=== PATIENT | female | born 2000 | race Caucasian/White ===

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

== ENCOUNTER 2020-07-19 08:54 | Day surgery (SDC) | payer BC ==
[2020-07-19] VITALS (9 sets, daily range): BP systolic 112–138; BP diastolic 67–75
[~2020-07-19] VITALS: Ht 165 cm; Wt 102.9 kg
[~2020-07-19 08:54] MED LIST: PANT40TA2 PO; SUCR1TAB36 PO
[2020-07-19 09:26] LABS: BILIRUBIN,URINE NEGATIVE (NEGATIVE); CLARITY,URINE CLEAR; COLOR,URINE YELLOW; GLUCOSE, URINE (UA) NEGATIVE (NEGATIVE); KETONES,URINE NEGATIVE (NEGATIVE); LEUKOCYTE ESTERASE ,URINE NEGATIVE (NEGATIVE); NITRITE,URINE NEGATIVE (NEGATIVE); PROTEIN,URINE NEGATIVE (NEGATIVE)
[2020-07-19] MEDS ORDERED: NS IV 1000 ML 1,000 ML IV SCH (09:26)
[2020-07-19 09:38] LABS: BACTERIA,URINE FEW /HPF
[2020-07-19 09:39] LABS: SQUAMOUS EPITHELIAL CELL,UR 25-50 /HPF
[2020-07-19 10:07] LABS: BASOPHILS % (AUTO) 0 % (0-10); EOSINOPHILS # (AUTO) 0.3 10^3/uL (0.0-0.3); EOSINOPHILS % (AUTO) 3 % (0-10); HEMATOCRIT 42 % (35-52); HEMOGLOBIN 14.4 G/DL (11.5-16.0); LYMPHOCYTES # (AUTO) 1.9 X 10^3 (1.0-4.0); LYMPHOCYTES % (AUTO) 19 % (12-44); MEAN CORPUSCULAR HEMOGLOBIN 29 PG (25-34); MEAN CORPUSCULAR HGB CONC 34 G/DL (32-36); MEAN CORPUSCULAR VOLUME 86 FL (80-99); MEAN PLATELET VOLUME 9.1 FL (7.4-10.4); MONOCYTES # (AUTO) 0.7 X 10^3 (0.0-1.0); MONOCYTES % (AUTO) 7 % (0-12); NEUTROPHILS # (AUTO) 7.4 X 10^3 (1.8-7.8); NEUTROPHILS % (AUTO) 71 % (42-75); PLATELET COUNT 405 10^3/uL (130-400); WHITE BLOOD COUNT 10.3 10^3/uL (4.3-11.0)
[2020-07-19 10:22] LABS: ALBUMIN 4.3 GM/DL (3.2-4.5)
[2020-07-19 10:23] LABS: CHLORIDE 104 MMOL/L (98-107); POTASSIUM 4.1 MMOL/L (3.6-5.0); SODIUM 137 MMOL/L (135-145)
[2020-07-19 10:24] LABS: CALCIUM 9.2 MG/DL (8.5-10.1)
[2020-07-19 10:25] LABS: GLUCOSE 91 MG/DL (70-105); TOTAL PROTEIN 7.5 GM/DL (6.4-8.2)
[2020-07-19 10:26] LABS: CARBON DIOXIDE 24 MMOL/L (21-32)
[2020-07-19 10:27] LABS: BILIRUBIN,TOTAL 0.5 MG/DL (0.1-1.0)
[2020-07-19 10:28] LABS: ALKALINE PHOSPHATASE 118 U/L (40-136)
[2020-07-19 10:29] LABS: CREATININE SERUM 0.82 MG/DL (0.60-1.30); GFR ESTIMATED > 60
[2020-07-19 10:30] LABS: BUN/CREATININE RATIO 9
[2020-07-19 10:32] LABS: ALANINE AMINOTRANSFERASE 19 U/L (0-55)
[2020-07-19] MEDS ORDERED: fentaNYL INJECTION 100 MCG/2 ML AMP ONE ×3 (11:41→14:38)
[2020-07-19] MEDS ORDERED: IOHEXOL 350 MG/ML 100 ML (OMNIPAQUE 350) VIAL IV ONE (12:00)
[2020-07-19] MEDS ORDERED: HOLD METFORMIN - RECEIVED CONTRAST 20 ML VIAL IV SCH (12:00)
[2020-07-19] MEDS ORDERED: NS 100 ML (IVPB) BAG IV ONE (12:00)
--- NOTE | 2020-07-19 12:33 | Diagnostic Imaging Report ---
PROCEDURE: CT abdomen and pelvis with contrast, rule out appendicitis. TECHNIQUE: Multiple contiguous axial images were obtained through the abdomen and pelvis after the administration of intravenous contrast. All CT scans use one or more of the following dose optimizing techniques: automated exposure control, MA and/or KvP adjustment based on patient size and exam type or iterative reconstruction. INDICATION: Right-sided pain, worsening in severity. COMPARISON: No relevant comparison. FINDINGS: The appendix is dilated, thick walled with periappendiceal edema and an intraluminal stone consistent with an appendicolith at its base. Appendiceal diameter is maximal 1.4 cm. The appearance is consistent with acute appendicitis. There is trace free fluid in the cul-de-sac as well as the lower right colic gutter. No abscess or loculated collection. No free air. No resultant bowel obstruction. There are few right lower quadrant reactive mesenteric lymph nodes. The remaining abdominopelvic solid and hollow viscera appeared unremarkable. IMPRESSION: Findings of acute appendicitis without resultant obstruction, abscess, or findings of transmural perforation. Dictated by: Dictated on workstation # [id number]
--- NOTE | 2020-07-19 13:05 | NUR ---
Dr. Stahl in room
[2020-07-19] MEDS ORDERED: BUP/EPI 0.25% 1:200,000 (MARCAINE) 30 ML VIAL ONE (13:11)
[2020-07-19] MEDS ORDERED: CIPROFLOXACIN IV 400MG/200ML 200 ML IV ONE (13:12)
[2020-07-19] MEDS ORDERED: metroNIDAZOLE 500MG/100ML IVPB 100 ML ONE (13:13)
--- NOTE | 2020-07-19 13:13 | NUR ---
consent obtained at this time.
--- NOTE | 2020-07-19 13:36 | ED Abdominal Pain ---
General Chief Complaint: Abdominal/GI Problems Stated Complaint: APPENDICITIS Nursing Triage Note: Pt c/o R sided abdominal pain that has worsened today. Pt denies urinary symptoms. Pt c/o diarrhea. Sepsis Screen: No Definite Risk Source of Information: Patient Exam Limitations: No Limitations History of Present Illness Date Seen by Provider: Jul 20, 2020 Time Seen by Provider: 09:00 Initial Comments This 19-year-old young lady presents to emergency room with complaints of her right lower quadrant pain that is sharp in nature and started last night. Symptoms worsened this morning. She has pain with movements, bumps in the road while riding in the car, etc. She is afebrile but mildly tachycardic. She denies , vaginal symptoms, urinary symptoms, constipation, cough, shortness of breath, or other symptoms of acute infectious illness. She did have one bout of diarrhea. Allergies and Home Medications Allergies Coded Allergies: Penicillins (Unverified Allergy, Unknown, 04/01/15) Home Medications Docusate Sodium 100 Mg Capsule, 100 MG PO BID Prescribed by: GRACIELA WELCH on 07/19/201510 Hydrocodone/Acetaminophen 1 Each Tablet, 1 TAB PO Q4-6HR Prescribed by: GRACIELA WELCH on 07/19/201510 Pantoprazole Sodium 40 Mg Tablet.dr, 40 MG PO DAILY Prescribed by: TETO PRESCOTT on 07/13/18132 Sucralfate 1 Gm Tablet, 1 GM PO QIDACHS Prescribed by: TETO PRESCOTT on 07/13/18132 Patient Home Medication List Home Medication List Reviewed: Yes Review of Systems Review of Systems Constitutional: no symptoms reported EENTM: No Symptoms Reported Respiratory: No Symptoms Reported Cardiovascular: See HPI Gastrointestinal: See HPI Genitourinary: No Symptoms Reported Musculoskeletal: no symptoms reported Skin: no symptoms reported Psychiatric/Neurological: No Symptoms Reported Endocrine: No Symptoms Reported Hematologic/Lymphatic: No Symptoms Reported Past Dajtgqr-Lheuea-Jticcn Hx Past Med/Social Hx: Reviewed Nursing Past Med/Soc Hx Patient Social History Alcohol Use: Occasionally Uses Recreational Drug Use: No 2nd Hand Smoke Exposure: No Recent Foreign Travel: No Contact w/Someone Who Travel: No Recent Infectious Disease Expo: No Recent Hopitalizations: No Seasonal Allergies Seasonal Allergies: No Past Medical History Surgeries: Yes (TRIGGER FINGER REPAIR; RIGHT KNEE SCOPE X 1, LEFT KNEE SCOPE X 2) Adenoidectomy, Orthopedic, Tonsillectomy Respiratory: No Cardiac: No Neurological: No : No Reproductive Disorders: No Genitourinary: No Gastrointestinal: No Musculoskeletal: No Endocrine: No HEENT: No Cancer: No Psychosocial: Yes Anxiety Integumentary: No Blood Disorders: No Physical Exam Vital Signs Vital Signs - First Documented 07/19/20 09:15 Temp 36.7 Pulse 105 Resp 20 B/P (MAP) 166/102 (123) Pulse Ox 98 O2 Delivery Room Air Capillary Refill : Less Than 3 Seconds Height/Weight/BMI Height: 5'6.00" Weight: 180lbs. oz. 81.148697vs; 37.00 BMI Method:Stated General Appearance: WD/WN, no apparent distress, obese HEENT: PERRL/EOMI, normal ENT inspection Neck: normal inspection Respiratory: lungs clear, normal breath sounds, no respiratory distress Cardiovascular: no edema, tachycardia Gastrointestinal: normal bowel sounds, soft, tenderness (right lower quadrant with positive Rovsing and tenderness to percussion. 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 as tested, no motor/sensory deficits, alert, normal mood/affect, oriented x 3 Skin: normal color, warm/dry Progress/Results/Core Measures Results/Orders Lab Results Laboratory Tests Test 07/19/20 09:15 07/19/20 10:00 Range/Units Urine Color YELLOW Urine Clarity CLEAR Urine pH 6.0 5-9 Urine Specific [place] 1.020 1.016-1.022 Urine Protein NEGATIVE NEGATIVE Urine Glucose (UA) NEGATIVE NEGATIVE Urine Ketones NEGATIVE NEGATIVE Urine Nitrite NEGATIVE NEGATIVE Urine Bilirubin NEGATIVE NEGATIVE Urine Urobilinogen 0.2 < = 1.0 MG/DL Urine Leukocyte Esterase NEGATIVE NEGATIVE Urine RBC (Auto) TRACE-L NEGATIVE Urine RBC NONE /HPF Urine WBC 5-10 H /HPF Urine Squamous Epithelial Cells 25-50 H /HPF Urine Crystals NONE /LPF Urine Bacteria FEW H /HPF Urine Casts NONE /LPF Urine Mucus NEGATIVE /LPF Urine Culture Indicated YES White Blood Count 10.3 4.3-11.0 10^3/uL Red Blood Count 4.89 4.35-5.85 10^6/uL Hemoglobin 14.4 11.5-16.0 G/DL Hematocrit 42 35-52 % Mean Corpuscular Volume 86 80-99 FL Mean Corpuscular Hemoglobin 29 25-34 PG Mean Corpuscular Hemoglobin Concent 34 32-36 G/DL Red Cell Distribution Width 12.2 10.0-14.5 % Platelet Count 405 H 130-400 10^3/uL Mean Platelet Volume 9.1 7.4-10.4 FL Neutrophils (%) (Auto) 71 42-75 % Lymphocytes (%) (Auto) 19 12-44 % Monocytes (%) (Auto) 7 0-12 % Eosinophils (%) (Auto) 3 0-10 % Basophils (%) (Auto) 0 0-10 % Neutrophils # (Auto) 7.4 1.8-7.8 X 10^3 Lymphocytes # (Auto) 1.9 1.0-4.0 X 10^3 Monocytes # (Auto) 0.7 0.0-1.0 X 10^3 Eosinophils # (Auto) 0.3 0.0-0.3 10^3/uL Basophils # (Auto) 0.0 0.0-0.1 10^3/uL Sodium Level 137 135-145 MMOL/L Potassium Level 4.1 3.6-5.0 MMOL/L Chloride Level 104 98-107 MMOL/L Carbon Dioxide Level 24 21-32 MMOL/L Anion Gap 9 5-14 MMOL/L Blood Urea Nitrogen 7 7-18 MG/DL Creatinine 0.82 0.60-1.30 MG/DL Estimat Glomerular Filtration Rate > 60 BUN/Creatinine Ratio 9 Glucose Level 91 70-105 MG/DL Calcium Level 9.2 8.5-10.1 MG/DL Corrected Calcium 9.0 8.5-10.1 MG/DL Total Bilirubin 0.5 0.1-1.0 MG/DL Aspartate Amino Transf (AST/SGOT) 19 5-34 U/L Alanine Aminotransferase (ALT/SGPT) 19 0-55 U/L Alkaline Phosphatase 118 40-136 U/L C-Reactive Protein High Sensitivity 1.11 H 0.00-0.50 MG/DL Total Protein 7.5 6.4-8.2 GM/DL Albumin 4.3 3.2-4.5 GM/DL Serum Test, Qualitative NEGATIVE NEGATIVE My Orders Orders - OLAYINKA JOINER MD Ua Culture If Indicated (07/19/20 09:00) Cbc With Automated Diff (07/19/20 09:26) Comprehensive Metabolic Panel (07/19/20 09:26) Hs C Reactive Protein (07/19/20 09:26) Hcg,Qualitative Serum (07/19/20 09:26) Ed Iv/Invasive Line Start (07/19/20 09:26) Ns Iv 1000 Ml (Sodium Chloride 0.9%) (07/19/20 09:26) Urine Culture (07/19/20 09:15) Fentanyl Injection (Sublimaze Injection (07/19/20 11:41) Iohexol Injection (Omnipaque 350 Mg/Ml 1 (07/19/20 12:00) Received Contrast (Hold Metformin- Contr (07/19/20 12:00) Ns (Ivpb) (Sodium Chloride 0.9% Ivpb Bag (07/19/20 12:00) Medications Given in ED Vital Signs/I&O 07/19/20 09:15 Temp 36.7 Pulse 105 Resp 20 B/P (MAP) 166/102 (123) Pulse Ox 98 O2 Delivery Room Air Blood Pressure Mean: 123 Progress Progress Note : Progress Note Patient received a liter of IV fluid. She initially declined pain medication but later decided to receive it. Fentanyl was provided. Risks and benefits of CT scan were discussed with the patient by Seema Encarnacion NP. Patient elected to proceed with CT scan which revealed acute appendicitis, uncomplicated. Dr. Welch was notified and the surgical crew was called in. Patient was taken to the surgical suite from the ER. Diagnostic Imaging Diagonstic Imaging: CT Plain Films/CT/US/NM/MRI: abdomen, pelvis Comments CT of the abdomen and pelvis was viewed by me and report reviewed. See report below: NAME: KELLEE ROJAS [facility] REC#: [id number] PT STATUS: REG ER : 2000 PHYSICIAN: SEEMA [employer] MANAGER ADMIT DATE: 07/19/20/ER Signed Date of Exam:07/19/20 CT ABD/PELV W (APPENDICITIS) PROCEDURE: CT abdomen and pelvis with contrast, rule out appendicitis. TECHNIQUE: Multiple contiguous axial images were obtained through the abdomen and pelvis after the administration of intravenous contrast. All CT scans use one or more of the following dose optimizing techniques: automated exposure control, MA and/or KvP adjustment based on patient size and exam type or iterative reconstruction. INDICATION: Right-sided pain, worsening in severity. COMPARISON: No relevant comparison. FINDINGS: The appendix is dilated, thick walled with periappendiceal edema and an intraluminal stone consistent with an appendicolith at its base. Appendiceal diameter is maximal 1.4 cm. The appearance is consistent with acute appendicitis. There is trace free fluid in the cul-de-sac as well as the lower right colic gutter. No abscess or loculated collection. No free air. No resultant bowel obstruction. There are few right lower quadrant reactive mesenteric lymph nodes. The remaining abdominopelvic solid and hollow viscera appeared unremarkable. IMPRESSION: Findings of acute appendicitis without resultant obstruction, abscess, or findings of transmural perforation. Dictated by: Dictated on workstation # [id number] Dict: 07/19/20 1221 Trans: 07/19/20 1247 [id number] [id number] Interpreted by: CARLEEN DUQUE Electronically signed by: CARLEEN DUQUE 07/19/20 1247 Departure Communication (Admissions) Time/Spoke to Admitting Phy: 12:40 Dr. Welch Impression Primary Impression: Acute appendicitis Qualified Codes: K35.30 - Acute appendicitis with localized peritonitis, without perforation or gangrene Disposition: ADMITTED INPATIENT Condition: Improved Admissions Decision to Admit Reason: Admit from ER (General) Decision to Admit/Date: Jul 19, 2020 Time/Decision to Admit Time: 12:30 Departure-Patient Inst. Referrals: HAMMAD LOPEZ MD (PCP/Family) Primary Care Physician Scripts Hydrocodone/Acetaminophen (Hydrocodone/Acetaminophen 5 MG/325 MG TAB) 1 Each Tablet 1 TAB PO Q4-6HR for Pain MDD 10 TABS for 7 Days, #30 TAB Prov: GRACIELA WELCH DO 07/19/20 Docusate Sodium (Colace) 100 Mg Capsule 100 MG PO BID, #30 CAP Prov: GRACIELA WELCH DO 07/19/20 OLAYINKA JOINER MD Jul 19, 2020 13:36
--- NOTE | 2020-07-19 13:40 | Consultation - Surgery ---
TRUONG MONTANEZ MED STUDENT 07/19/20 1340: History of Present Illness History of Present Illness Patient Consulted On(spencer/time) 07/19/20 approximately 13:00 Date Seen by Provider: Jul 19, 2020 Time Seen by Provider: 13:20 Reason for Visit: RLQ abdominal pain History of Present Illness Delia is an otherwise healthy 19 yo F who complains of constant progressively worsening RLQ abdominal pain beginning yesterday morning. her pain was initially crampy but became sharp today. She states her pain worsens with movement. The patient denies chest pain or SOB. No nausea or vomiting at this time. Prior surgeries include 3 knee surgeries. Allergies and Home Medications Allergies Coded Allergies: Penicillins (Unverified Allergy, Unknown, 04/01/15) Home Medications Pantoprazole Sodium 40 Mg Tablet.dr, 40 MG PO DAILY Prescribed by: TETO PRESCOTT on 07/13/18 013 Sucralfate 1 Gm Tablet, 1 GM PO QIDACHS Prescribed by: TETO PRESCOTT on 07/13/18132 Past Chupmkb-Lvvipg-Bpmsyf Hx Patient Social History Alcohol Use: Occasionally Uses Recreational Drug Use: No 2nd Hand Smoke Exposure: No Recent Foreign Travel: No Contact w/Someone Who Travel: No Recent Infectious Disease Expo: No Recent Hopitalizations: No Seasonal Allergies Seasonal Allergies: No Surgeries History of Surgeries: Yes (TRIGGER FINGER REPAIR; RIGHT KNEE SCOPE X 1, LEFT KNEE SCOPE X 2) Surgeries: Adenoidectomy, Orthopedic, Tonsillectomy Respiratory History of Respiratory Disorde: No Cardiovascular History of Cardiac Disorders: No Neurological History of Neurological Disord: No Reproductive System Hx Reproductive Disorders: No Genitourinary History of Genitourinary Disor: No Gastrointestinal History of Gastrointestinal Di: No Musculoskeletal History of Musculoskeletal Dis: No Endocrine History of Endocrine Disorders: No HEENT History of HEENT Disorders: No Cancer History of Cancer: No Psychosocial History of Psychiatric Problem: Yes Behavioral Health Disorders: Anxiety Integumentary History of Skin or Integumenta: No Blood Transfusions History of Blood Disorders: No Review of Systems-General Constitutional: No chills, No fever EENTM: No ear pain, No blurred vision Respiratory: No cough, No short of breath Cardiovascular: No chest pain, No palpitations Gastrointestinal: RLQ, abdominal pain (RLQ), diarrhea Genitourinary: No frequency, No hematuria Musculoskeletal: No muscle pain, No muscle stiffness Skin: No change in color, No change in hair/nails Psychiatric/Neurological: Denies Anxiety, Denies Depressed All Other Systems Reviewed Negative Unless Noted: Yes Physical Exam-General Problems Physical Exam Vital Signs Vital Signs - First Documented 07/19/20 09:15 Temp 36.7 Pulse 105 Resp 20 B/P (MAP) 166/102 (123) Pulse Ox 98 O2 Delivery Room Air Capillary Refill : Less Than 3 Seconds General Appearance: WD/WN, mild distress HEENT: PERRL/EOMI, normal ENT inspection Neck: non-tender, supple Respiratory: chest non-tender, no respiratory distress, no accessory muscle use Cardiovascular: no edema, no JVD Gastrointestinal: soft; No guarding, No rebound; tenderness (RLQ), other (+ rovsing's. + McBurney's point) Back: normal inspection, no vertebral tenderness Extremities: no pedal edema, no calf tenderness Neurologic/Psychiatric: alert, normal mood/affect, oriented x 3 Data Review Labs Laboratory Tests 07/19/20 09:15: Urine Color YELLOW, Urine Clarity CLEAR, Urine pH 6.0, Urine Specific [place] 1.020, Urine Protein NEGATIVE, Urine Glucose (UA) NEGATIVE, Urine Ketones NEGATIVE, Urine Nitrite NEGATIVE, Urine Bilirubin NEGATIVE, Urine Urobilinogen 0.2, Urine Leukocyte Esterase NEGATIVE, Urine RBC (Auto) TRACE-L, Urine RBC NONE, Urine WBC 5-10H, Urine Squamous Epithelial Cells 25-50H, Urine Crystals NONE, Urine Bacteria FEWH, Urine Casts NONE, Urine Mucus NEGATIVE, Urine Culture Indicated YES 07/19/20 10:00: White Blood Count 10.3, Red Blood Count 4.89, Hemoglobin 14.4, Hematocrit 42, Mean Corpuscular Volume 86, Mean Corpuscular Hemoglobin 29, Mean Corpuscular Hemoglobin Concent 34, Red Cell Distribution Width 12.2, Platelet Count 405H, Mean Platelet Volume 9.1, Neutrophils (%) (Auto) 71, Lymphocytes (%) (Auto) 19, Monocytes (%) (Auto) 7, Eosinophils (%) (Auto) 3, Basophils (%) (Auto) 0, Neutrophils # (Auto) 7.4, Lymphocytes # (Auto) 1.9, Monocytes # (Auto) 0.7, Eosinophils # (Auto) 0.3, Basophils # (Auto) 0.0, Sodium Level 137, Potassium Level 4.1, Chloride Level 104, Carbon Dioxide Level 24, Anion Gap 9, Blood Urea Nitrogen 7, Creatinine 0.82, Estimat Glomerular Filtration Rate > 60, BUN/Creatinine Ratio 9, Glucose Level 91, Calcium Level 9.2, Corrected Calcium 9.0, Total Bilirubin 0.5, Aspartate Amino Transf (AST/SGOT) 19, Alanine Aminotransferase (ALT/SGPT) 19, Alkaline Phosphatase 118, C-Reactive Protein High Sensitivity 1.11H, Total Protein 7.5, Albumin 4.3, Serum Test, Qualitative NEGATIVE Assessment/Plan Assessment/Plan Assessment/Plan acute Appendicitis apendicolith by CT RLQ pain begin Flagyl and Cipro preop plan appendectomy GRACIELA WELCH DO 07/19/20 1346: History of Present Illness History of Present Illness Patient Consulted On(spencer/time) seen and evaluated in ed History of Present Illness consult requested by Dr. Rodriguez for appendicitis. Patient is a 19 year old female bdgan having rlq abdominal pain yesterday and has progression of symptoms. Crampy sharp pain. No radiation. Movement makes worse, felt every bump in the road and unable to jump up and down. Patient states laying still makes a little better. Denies n/v fever sweats chills shortness of breath or chest pain. CT scan consistent with acute appendicitis c appendicolith. Allergies and Home Medications Allergies Coded Allergies: Penicillins (Unverified Allergy, Unknown, 04/01/15) Home Medications Pantoprazole Sodium 40 Mg Tablet.dr, 40 MG PO DAILY Prescribed by: TTEO PRESCOTT on 07/13/18132 Sucralfate 1 Gm Tablet, 1 GM PO QIDACHS Prescribed by: TETO PRESCOTT on 07/13/18132 Patient Home Medication List Home Medication List Reviewed: Yes Past Vjhrkhb-Pxtfon-Kxigga Hx Patient Social History Alcohol Use: Denies Use Recreational Drug Use: No Smoking Status: Never a Smoker Surgeries History of Surgeries: Yes Surgeries: Orthopedic Cardiovascular History of Cardiac Disorders: No Neurological History of Neurological Disord: No Reproductive System : No Genitourinary History of Genitourinary Disor: No Gastrointestinal History of Gastrointestinal Di: No Musculoskeletal History of Musculoskeletal Dis: No Endocrine History of Endocrine Disorders: No HEENT History of HEENT Disorders: No Cancer History of Cancer: No Psychosocial History of Psychiatric Problem: No Integumentary History of Skin or Integumenta: No Family Medical History Significant Family History: No Pertinent Family Hx Review of Systems-General Constitutional: No chills, No fever EENTM: No ear pain, No blurred vision Respiratory: No cough, No short of breath Cardiovascular: No chest pain, No palpitations Gastrointestinal: RLQ, abdominal pain (RLQ), diarrhea Genitourinary: No frequency, No hematuria Musculoskeletal: No muscle pain, No muscle stiffness Skin: No change in color, No change in hair/nails Psychiatric/Neurological: Denies Anxiety, Denies Depressed All Other Systems Reviewed Negative Unless Noted: Yes (Negative excepted noted.) Physical Exam-General Problems Physical Exam General Appearance: WD/WN, no apparent distress HEENT: PERRL/EOMI, normal ENT inspection Neck: non-tender, supple Respiratory: chest non-tender, no respiratory distress, no accessory muscle use Cardiovascular: normal peripheral pulses, regular rate, rhythm, no edema Gastrointestinal: soft; No guarding, No rebound; tenderness (RLQ), other (+ rovsing's. + McBurney's point) Rectal: deferred Back: normal inspection, no vertebral tenderness Extremities: non-tender, no pedal edema, no calf tenderness Neurologic/Psychiatric: alert, normal mood/affect, oriented x 3 Skin: normal color, warm/dry Lymphatic: no adenopathy Assessment/Plan Assessment/Plan Assessment/Plan acute Appendicitis apendicolith by CT RLQ pain preop abx patient explained risks and benefits and wishes to proceed with laparoscopic appendectomy all other indicated procedures she understands and wishes to proceed to or Supervisory-Addendum Brief Verification & Attestation Participated in pt care: history, MDM, physical Personally performed: exam, history, MDM, supervision of care Care discussed with: Medical Student Procedures: n/a Results interpretation: Verified all documentation Verification and Attestation of Medical Student E/M Service A medical student performed and documented this service in my presence. I reviewed and verified all information documented by the medical student and made modifications to such information, when appropriate. I personally performed the physical exam and medical decision making. Graciela Welch, Jul 19, 2020,13:49 TRUONG MONTANEZ MED STUDENT Jul 19, 2020 13:40 GRACIELA WELCH DO Jul 19, 2020 13:46
[2020-07-19] MEDS ORDERED: LIDOCAINE PF 2% 5 ML (XYLOCAINE) VIAL ONE (13:51)
[2020-07-19] MEDS ORDERED: ONDANSETRON 4 MG/2 ML (SDV) Z0FRAN ONE ×3 (13:51→15:06)
[2020-07-19] MEDS ORDERED: proPOfol 200 MG/20 ML (DIPRIVAN) VIAL IV ONE (13:51)
[2020-07-19] MEDS ORDERED: ROCURONIUM 10 MG/ML 5 ML SYRINGE IV ONE (13:51)
[2020-07-19] MEDS ORDERED: MIDAZOLAM 2 MG/2 ML (VERSED) VIAL ONE (13:53)
[2020-07-19] MEDS ORDERED: SCOPOLAMINE 1.5 MG (TRANSDERM-SCOP) PATCH ONE (13:54)
[2020-07-19] MEDS ORDERED: FAMOTIDINE 20MG/2ML IV (PEPCID) ONE (13:55)
[2020-07-19] MEDS ORDERED: MEPERIDINE (DEMEROL) INJ 50 MG/ML ONE (14:29)
[2020-07-19] MEDS ORDERED: PROMETHAZINE INJ 25 MG/ML (PHENERGAN) AMP ONE (14:30)
[2020-07-19] MEDS ORDERED: morphine INJ 10 MG/ML 1ML (SYR OR VIAL) ONE (14:30)
[2020-07-19] MEDS ORDERED: HYDROmorphone 2 MG/ML VIAL (DILAUDID) ONE (14:31)
[2020-07-19] MEDS ORDERED: LACTATED RINGERS 1,000 ML IV PRN ×2 (14:33→15:29)
[2020-07-19] MEDS ORDERED: SEVOFLURANE (ULTANE) 15 ML INHAL SOLN ONE ×5 (14:37→15:13)
[2020-07-19] MEDS ORDERED: NEOSTIGMINE 3 MG/3 ML VIAL ONE (15:04)
[2020-07-19] MEDS ORDERED: GLYCOPYRROLATE 0.2 MG/ML (ROBINUL) 2 ML VIAL ONE (15:04)
[2020-07-19] MEDS ORDERED: HYDR-4226 PO (15:11)
[2020-07-19] MEDS ORDERED: DOCU-143 PO (15:11)
--- NOTE | 2020-07-19 15:12 | Discharge Inst-Simple/Standard ---
Discharge Inst-Standard Discharge Medications New, Converted or Re-Newed RX: RX on Chart Patient Instructions/Follow Up Plan of Care/Instructions/FU: 2-3 WEEKS REBEKAH Activity as Tolerated: No Discharge Diet: Regular Diet Other Inst to Patient Follow up Appt: Make appointment for 2-3 week. Instructions: No lifting greater than 10 pounds. No strenuous activity. May shower in 24 hours, no tub bath or soaking. Use incentive spirometer at home as directed. No Smoking Skin/Wound Care: You have special glue over your incision that will fall off on it's own. Symptoms to Report: Appetite Changes, Extremity Discoloration, Numbness/Tingling, Swelling Increased, Bleeding Excessive, Eyesight Changes, Pain Increased, Urine Color Change, Constipation(Persistent), Fever over 101 degree F, Pain/Pressure in chest, Urinating Difficulty, Cough Up/Vomit Blood, Heart Beat Irreg/Pounding, Pain/Pressure in jaw, Vaginal Bleeding Increase, Cramps in feet or legs, Lightheadedness, Pain/Pressure in shoulder, Diarrhea(Persistent), Memory Changes Suddenly, Questions/Concerns, Weight gain consecutive days, Dizziness/Fainting, Nausea/Vomiting, Shortness of Breath, Weight gain over 2 pounds If questions or concerns contact your physician Or seek help at emergency department. GRACIELA WELCH DO Jul 19, 2020 15:12
--- NOTE | 2020-07-19 15:15 | Progress Note-Post Operative ---
Post-Operative Progess Note Surgeon (s)/Merchandise Planning Manager (s) Surgeon GRACIELA WELCH DO Merchandise Planning Manager: NA Pre-Operative Diagnosis ACUTE APPENDICITIS, RLQ ABDOMINAL PAIN, APPENDICOLITH Post-Operative Diagnosis SAME Procedure & Operative Findings Date of Procedure 07/19/20 Procedure Performed/Findings PROCEDURE: Laparoscopic appendectomy. COMPLICATIONS: None. INDICATIONS: The patient is a 19 year old female who has been having right lower quadrant abdominal pain. Patient's exam consistent with appendicitis. I discussed risk and benefits of laparoscopic appendectomy and all indicated procedures with the possibility being a normal appendix. The patient understands the risks and benefits and wishes to proceed. Consent was signed on the chart. DESCRIPTION OF PROCEDURE: The patient was taken to the operating suite, prepped and draped in a sterile fashion. Timeout was performed. Local anesthetic was infiltrated just above the umbilicus and 11-blade scalpel was used to make a skin incision. Cautery was used to dissect down to the fascia and scored. Kochers were used to grasp and elevate it and the abdomen was then entered. The balloon trocar was inserted into the abdomen and pneumoperitoneum was achieved. Under direct visualization of the laparoscope, a 5 mm trocar was placed in the suprapubic region and a 5 mm trocar was placed in the left lower quadrant. Appendix was located, dilated and inflamed. The base of the appendix was dissected around. Once at the base an Endo-ANDIE 2.5 stapler was then fired across the base of the appendix. The mesoappendix was then divided with 2.0 reload. It was then placed in an Endobag and removed through the 12 mm trocar site. The abdomen was then irrigated and suctioned. No other pathology noted. 12 mm trochar then removed and endoclose and 0 vicyrl suture used to close the defect. The abdomen was then desufflated and the trocars were removed. The skin was then closed using 4-0 Monocryl in a subcuticular fashion. The abdomen was then washed and dried and Skin Affix was placed over the incisions. The patient tolerated the procedure well without any complications and was taken to the recovery room in stable condition. Anesthesia Type general Estimated Blood Loss Estimated blood loss (mL): minimal Specimens/Packing Specimens Removed appendix GRACIELA WELCH DO Jul 19, 2020 15:15
[2020-07-19] MEDS ORDERED: PROMETHAZINE INJ 25 MG/ML (PHENERGAN) AMP IVP ONE (15:30)
[2020-07-19] MEDS ORDERED: HYDROmorphone 2 MG/ML VIAL (DILAUDID) IV ONE (15:30)
[2020-07-19] MEDS ORDERED: morphine INJ 10 MG/ML 1ML (SYR OR VIAL) IVP ONE (15:30)
[2020-07-19] MEDS ORDERED: FAMOTIDINE 20MG/2ML IV (PEPCID) IV ONE (15:30)
[2020-07-19] MEDS ORDERED: ONDANSETRON 4 MG/2 ML (SDV) Z0FRAN IVP PRN ×2 (15:30→16:45)
[2020-07-19] MEDS ORDERED: SCOPOLAMINE 1.5 MG (TRANSDERM-SCOP) PATCH TOP ONE (15:30)
--- NOTE | 2020-07-19 16:25 | NUR ---
RECEIVED POST LAPAROSCOPIC APPY TO ROOM 423. REPORT GIVEN BY DEEP FERRELL. PATIENT ALERT AND COMPLAINING OF INCISIONAL DISCOMFORT THEN FELL BACK ASLEEP. IV INTACT IN LEFT AC. MOTHER AT BEDSIDE. 3 LAP SITES WITH DERMABOND.
--- NOTE | 2020-07-19 16:33 | Anesthesia-General Post-Op ---
General Post Op Complications Complications None Follow Up Care/Instructions Patient Instructions None needed. Anesthesia/Patient Condition Patient Condition Patient is doing well, no complaints, stable vital signs, no apparent adverse anesthesia problems. No complications reported per nursing. YVON MOODY WATER PURIFIER OPERATOR Jul 19, 2020 16:33
[2020-07-19] MEDS ORDERED: HYDROcodone/APAP 5 MG/325 MG (LORTAB) TAB PO PRN (16:45)
--- NOTE | 2020-07-19 17:15 | NUR ---
COMPLAIN INCISIONAL PAIN AND NAUSEA. ORDERS RECEIVED AND MEDICATED WITH ZOFRAN AND LORTAB.
--- NOTE | 2020-07-19 18:00 | NUR ---
DISCHARGE INSTRUCTIONS GIVEN TO MOTHER WITH PATIENT LISTENING. VOICES UNDERSTANDING.
--- NOTE | 2020-07-19 19:00 | NUR ---
UP TO BATHROOM TO VOID. NAUSEATED. MOTHER NOW SAYS SHE HAD LORTAB AFTER HER PREVIOUS KNEE SURGERY AND WAS NAUSEATED WITH IT THEN. DR. WELCH NOTIFIED THAT PATIENT IS REQUESTING TO SPEND THE NIGHT AND ORDER RECEIVED TO CANCEL DC UNTIL TOMORROW. MAY CALL IN ZOFRAN 4 MG PO Q 4 HRS. PRN NAUSEA #20 AND TRAMADOL 30 MG PO Q 6 HRS. #30 PRN PAIN IN THE AM PRIOR TO DISCHARGE.
[2020-07-19] MEDS: LACTATED RINGERS 1,000 ML IV SCH (22:23)
[2020-07-19] MEDS ORDERED: metroNIDAZOLE 500 MG (FLAGYL) TAB PO ONE (23:00)
[2020-07-20 00:36] VITALS: BP 121/57
[2020-07-20] MEDS ORDERED: CIPROFLOXACIN 500 MG (CIPRO) TABLET PO SCH (02:00)
[2020-07-20 03:26] VITALS: BP 128/60
[2020-07-20] MEDS: LACTATED RINGERS 1,000 ML IV SCH (06:04)
[2020-07-20] MEDS ORDERED: metroNIDAZOLE 500 MG (FLAGYL) TAB PO ONE (07:00)
[2020-07-20 08:00] VITALS: BP 123/66
--- NOTE | 2020-07-20 09:01 | Progress Note - Surgery ---
TRUONG MONTANEZ MED STUDENT 07/20/20 0901: Subjective Date Seen by a Provider: Jul 20, 2020 Time Seen by a Provider: 07:00 Subjective/Events-last exam Delia is doing well this morning. Requested to stay overnight due to problems with postop nausea after prior knee surgeries. States no nausea since switching to tramadol last night, states pain is well controlled. Has not passed gas or stool yet. No fever, chills, chest pain, SOB. Denies incision site drainage. Objective Exam Vital Signs Date Time Temp Pulse Resp B/P (MAP) Pulse Ox O2 Delivery O2 Flow Rate FiO2 07/20/20 08:00 36.9 80 18 123/66 (85) 97 Room Air 07/20/20 03:26 37.0 89 20 128/60 (82) 96 Room Air 07/20/20 00:36 37.0 97 20 121/57 (78) 98 Room Air 07/19/20 22:19 Room Air 07/19/20 20:00 Room Air 07/19/20 19:26 36.6 92 20 120/75 (90) 97 Room Air 07/19/20 16:50 36.4 75 20 112/71 99 Room Air 07/19/20 16:25 36.2 20 129/70 (89) 100 Room Air 07/19/20 16:25 36.2 75 20 112/71 (85) 99 Room Air 07/19/20 16:25 Room Air 07/19/20 16:15 Room Air 07/19/20 16:10 20 130/72 (91) 100 Room Air 07/19/20 16:00 Room Air 07/19/20 16:00 20 131/67 (88) 96 Room Air 07/19/20 15:50 20 131/73 (92) 99 Room Air 07/19/20 15:45 OxyMask 2 07/19/20 15:40 20 130/70 (90) 100 OxyMask 3 07/19/20 15:30 20 135/72 (93) 100 OxyMask 4 07/19/20 15:30 OxyMask 6 07/19/20 15:25 OxyMask 6 07/19/20 15:22 36.2 20 138/72 (94) 100 OxyMask 6 07/19/20 13:44 36.7 97 20 161/97 (123) 98 Room Air 07/19/20 09:15 36.7 105 20 166/102 (123) 98 Room Air I & O 07/20/20 07:00 Intake Total 1690 ml Output Total 930 ml Balance 760 ml Capillary Refill : Less Than 3 SecondsLess Than 3 Seconds General Appearance: No Apparent Distress, WD/WN HEENT: PERRL/EOMI, TMs Normal Neck: Full Range of Motion, Normal Inspection Respiratory: Chest Non Tender, Lungs Clear, Normal Breath Sounds, No Accessory Muscle Use Cardiovascular: Regular Rate, Rhythm, No Edema, No Gallop Gastrointestinal: normal bowel sounds, soft, no pulsatile mass, tenderness (when nearing incision sites. Nontender abdomen further from incision sites.) Extremity: Normal Capillary Refill, Normal Inspection Neurologic/Psychiatric: Alert, Oriented x3, Normal Mood/Affect Skin: Normal Color, Warm/Dry, Other (laparoscopic incision sites with surrouding ecchymosis but no spreading erythema no sign of cellulitis) Results Lab Laboratory Tests 07/19/20 09:15: Urine Color YELLOW, Urine Clarity CLEAR, Urine pH 6.0, Urine Specific [place] 1.020, Urine Protein NEGATIVE, Urine Glucose (UA) NEGATIVE, Urine Ketones NEGATIVE, Urine Nitrite NEGATIVE, Urine Bilirubin NEGATIVE, Urine Urobilinogen 0.2, Urine Leukocyte Esterase NEGATIVE, Urine RBC (Auto) TRACE-L, Urine RBC NONE, Urine WBC 5-10H, Urine Squamous Epithelial Cells 25-50H, Urine Crystals NONE, Urine Bacteria FEWH, Urine Casts NONE, Urine Mucus NEGATIVE, Urine Culture Indicated YES 07/19/20 10:00: White Blood Count 10.3, Red Blood Count 4.89, Hemoglobin 14.4, Hematocrit 42, Mean Corpuscular Volume 86, Mean Corpuscular Hemoglobin 29, Mean Corpuscular Hemoglobin Concent 34, Red Cell Distribution Width 12.2, Platelet Count 405H, Mean Platelet Volume 9.1, Neutrophils (%) (Auto) 71, Lymphocytes (%) (Auto) 19, Monocytes (%) (Auto) 7, Eosinophils (%) (Auto) 3, Basophils (%) (Auto) 0, Neutrophils # (Auto) 7.4, Lymphocytes # (Auto) 1.9, Monocytes # (Auto) 0.7, Eosinophils # (Auto) 0.3, Basophils # (Auto) 0.0, Sodium Level 137, Potassium Level 4.1, Chloride Level 104, Carbon Dioxide Level 24, Anion Gap 9, Blood Urea Nitrogen 7, Creatinine 0.82, Estimat Glomerular Filtration Rate > 60, BUN/Creatinine Ratio 9, Glucose Level 91, Calcium Level 9.2, Corrected Calcium 9.0, Total Bilirubin 0.5, Aspartate Amino Transf (AST/SGOT) 19, Alanine Aminotransferase (ALT/SGPT) 19, Alkaline Phosphatase 118, C-Reactive Protein High Sensitivity 1.11H, Total Protein 7.5, Albumin 4.3, Serum Test, Qualitative NEGATIVE Assessment/Plan Assessment/Plan Assessment/Plan acute Appendicitis apendicolith by CT RLQ pain preop abx patient explained risks and benefits and wishes to proceed with laparoscopic appendectomy all other indicated procedures she understands and wishes to proceed to or Clinical Quality Measures DVT/VTE Risk/Contraindication: Risk Factor Score Per Nursin RFS Level Per Nursing on Admit: 3=High AMILCAR STAHL DO 07/20/201924: Subjective Subjective/Events-last exam Feeling well. Nausea resolved when not taking vicodin. Did well with Tramadol. Tolerating diet, pain controlled. Wanting to go home. Denies n/v fever sweats chills shortness of breath or chest pain. Objective Exam General Appearance: No Apparent Distress, WD/WN Neck: Normal Inspection Respiratory: Chest Non Tender, No Accessory Muscle Use, No Respiratory Distress Cardiovascular: Regular Rate, Rhythm Gastrointestinal: soft, tenderness (incisional, c/d/i no signs of infection) Extremity: Normal Capillary Refill, Normal Inspection Neurologic/Psychiatric: Alert Lymphatic: No Adenopathy Assessment/Plan Assessment/Plan Assessment/Plan acute Appendicitis apendicolith by CT RLQ pain s/p lap appendectomy nausea doing well, nausea resolved feel this is related to vicodin switched to tramadol and doing well. okay to dc home today patient wanting to go home follow up arranged Final Diagnosis acute Appendicitis apendicolith by CT RLQ pain s/p lap appendectomy nausea Supervisory-Addendum Brief Verification & Attestation Participated in pt care: history, MDM, physical Personally performed: exam, history, MDM, supervision of care Care discussed with: Medical Student Procedures: n/a Results interpretation: Verified all documentation Verification and Attestation of Medical Student E/M Service A medical student performed and documented this service in my presence. I reviewed and verified all information documented by the medical student and made modifications to such information, when appropriate. I personally performed the physical exam and medical decision making. Amilcar Stahl, Jul 20, 2020,09:26 TRUONG MONTANEZ MED STUDENT Jul 20, 2020 09:01 AMILCAR STAHL DO Jul 20, 2020 19:25
[2020-07-20] MEDS ORDERED: TRM50T PO (09:30)
[2020-07-20] MEDS ORDERED: ONDN4T PO (09:32)
[2020-07-20 09:45] VITALS: BP 123/66
--- NOTE | 2020-07-20 09:45 | NUR ---
scripts called to pharmacy per Dr. Stahl, f/u appointment given. pt verbalized understanding of teaching no questions.
--- NOTE | 2020-07-20 09:45 | NUR ---
KELLEE ROJAS demonstrates understanding of discharge instructions and accurately returns instructions upon questioning. Copy of Post-Discharge Instructions and Medication Discharge Instructions given to pt. KELLEE ROJAS is able to manage continuing needs after discharge. Patients belongings returned to pt. Skin dry and intact; no breakdown noted. Patient discharged from on at 0945. KELLEE ROJAS left floor ambulating, accompanied by staff.
== END 2020-07-20 09:45 | disposition home or self-care (01) ==
LOC: EDUNIT# 08:54 → ER 08:56 → SDC 12:56 → 4TH 16:18 → SDC 07-20 09:45
PROVIDERS: ATTEND Surgery
DX: K35.30 Acute appendicitis with localized peritonitis, without perforation or gangrene (principal); K38.1 Appendicular concretions; F41.9 Anxiety disorder, unspecified; Z79.899 Other long term (current) drug therapy; Z88.0 Allergy status to penicillin
CPT/HCPCS: 36415; 74177; 80053; 81000; 84703; 85025; 86141; 87088; 94664